=== PATIENT | male | born 1955 | race Hispanic/Latino ===

== ENCOUNTER 2022-12-24 07:48 | Outpatient (CLI) | payer MEDICARE ==
[2022-12-24] MEDS ORDERED: Iopamidol 370 76% 100 ML VIAL ONE (09:54)
== END 2022-12-24 07:49 | disposition home or self-care (01) ==
LOC: CT 07:48
PROVIDERS: ATTEND Family Medicine
DX: K04.7 Periapical abscess without sinus (principal); R13.19 Other dysphagia; I65.22 Occlusion and stenosis of left carotid artery
CPT/HCPCS: 70492; Q9967

== ENCOUNTER 2023-02-10 08:32 | Inpatient (IN) | payer MEDICARE ==
[2023-02-10] MEDS ORDERED: Ondansetron PF 4 MG/2 ML Vial ONE (08:54)
[2023-02-10 09:15] LABS: #Monocytes 0.3 thou/uL (0.11-0.59); #Neutrophils 2.9 thou/uL (1.40-6.50); %Basophils 0.8 % (0.0-1.0); %Lymphocytes 13.3 % (21.0-51.0); %Neutrophils 77.4 % (42.0-75.0); Hemoglobin 16.3 g/dL (14.0-18.0); Mean Corpuscular HGB CONC 33.7 g/dL (32.0-36.0); Mean Corpuscular Hemoglobin 31.9 pg (27.0-31.0); Mean Corpuscular Volume 94.5 fl (78.0-98.0); Mean Platelet Volume 9.8 fL (7.4-10.4); Platelet Count 194 10x3/uL (130-400); RBC Distribution Width 12.8 % (11.5-14.5); Red Blood Cell (RBC) Count 5.11 mill/uL (4.70-6.10); White Blood Cell (WBC) Count 3.8 10x3/uL (4.8-10.8)
[2023-02-10 09:18] LABS: Bacteria/HPF None Seen HPF (None Seen); Bilirubin Negative (Negative); Blood, Urine Negative (Negative); CAUTI Indications for Culture Pelvic or flank pain; Clarity Clear (Clear); Glucose, Urine (Dipstick) Greater than 1000 mg/dL (Negative); Ketone, Urine 100 mg/dL (Negative); Leukocyte Negative Leu/uL (Negative); Nitrite Negative (Negative); Protein, Urine (Dipstick) 70 mg/dL (Neg-Trace); RBC/HPF 0-3 HPF (0-3); Specific Gravity, Urine 1.035 (1.002-1.036); Squamous Epithelial 0-3 HPF (0-3); Urobilinogen Normal mg/dL (Less than 2); WBC/HPF 0-3 HPF (0-3); pH, Urine 5.5 (5.0-9.0)
[2023-02-10 09:20] LABS: Urine Culture Reflex No No
[2023-02-10 09:40] LABS: ALT (SGPT) 19 U/L (8-55); AST (SGOT) 27 U/L (5-34); Albumin 4.3 g/dL (3.4-4.8); Alkaline Phosphatase 72 U/L (40-110); Anion Gap 23 mmol/L (10-20); BUN (Urea Nitrogen) 29 mg/dL (8.4-25.7); Calc. Creatinine Clearance 0 mL/min (70-130); Carbon Dioxide 17 mmol/L (23-31); Chloride 97 mmol/L (98-107); Estimated GFR 92; Globulin 3.7 g/dL (2.4-3.5); Glucose 240 mg/dL (80-115); Lipase 5 U/L (8-78); Potassium 4.1 mmol/L (3.5-5.1); Sodium 133 mmol/L (136-145)
[2023-02-10 10:22] LABS: Base Excess -9.8 mEq/L (-2.0 to +3.0); Calcium, Ionized (venous) 0.92 mmol/L (1.16-1.32); Chloride (VBG) 105 mmol/L (98-106); Hematocrit-VBG 46 % (42.0-52.0); Hemoglobin (Hb) 15.7 g/dL (12.6-17.4); Potassium (VBG) 3.56 mmol/L (3.70-5.30); Sodium 130.2 mmol/L (133-146); pH (venous) 7.352 (7.32-7.43)
[2023-02-10 10:23] LABS: Actual Bicarbonate (HCO3v) 13.7 mEq/L (22-28)
[2023-02-10 10:27] LABS: Manual Diff?? YES
[2023-02-10 10:46] LABS: Band 46 % (5-11); Lymphocytes 14 % (21-51); Metamyelocyte 4 % (0-0); Monocytes 8 % (0-10); Neutrophil 28 % (42-75)
[2023-02-10 10:50] LABS: Platelet Adequacy Comment Appears Adequate
[2023-02-10] MEDS ORDERED: Piperacillin/Tazobactam 4.5 GM VIAL ONE (11:35)
[2023-02-10] MEDS ORDERED: Sodium Chloride 0.9% 1,000 ML IV PRN ×4 (11:42)
[2023-02-10] MEDS ORDERED: Dextrose 5 %-0.45 % NaCl 1,000 ML IV PRN (11:42)
[2023-02-10] MEDS ORDERED: Dextrose 50% Abboject 50 ML SYRINGE SLOW IVP PRN (11:42)
[2023-02-10] MEDS ORDERED: Electrolyte Replacement Protocol 1 EACH IVPB SCH (11:42)
[2023-02-10] MEDS ORDERED: NS 0.9% w/ 20 MEQ KCL 1,000 ML IV PRN ×2 (11:42)
[2023-02-10] MEDS ORDERED: HUMULIN R 100 UNITS in Sodium Chloride 0.9% 100 ML IVPB SCH (11:45)
[2023-02-10] MEDS ORDERED: Acetaminophen 325 MG TAB PO PRN (11:46)
[2023-02-10] MEDS ORDERED: Ondansetron PF 4 MG/2 ML Vial IVP PRN (11:46)
[2023-02-10] MEDS ORDERED: Morphine 4 MG/ML VIAL SLOW IVP PRN (11:52)
[2023-02-10] MEDS ORDERED: Morphine 4 MG/ML VIAL ONE (12:01)
[2023-02-10] MEDS ORDERED: INSULIN REGULAR IN 0.9 % NACL 100 UNITS/100 ML BAG ONE (12:02)
[2023-02-10] MEDS ORDERED: D5 1/2 NS w/20 mEq KCL 1,000 ML ONE (12:02)
[2023-02-10 13:10] LABS: Anion Gap 16 mmol/L (10-20); BUN (Urea Nitrogen) 23 mg/dL (8.4-25.7); Calc. Creatinine Clearance 0 mL/min (70-130); Calcium 8.9 mg/dL (7.8-10.44); Carbon Dioxide 19 mmol/L (23-31); Chloride 103 mmol/L (98-107); Estimated GFR 102; Glucose 226 mg/dL (80-115); Potassium 3.4 mmol/L (3.5-5.1); Sodium 135 mmol/L (136-145)
[2023-02-10] MEDS ORDERED: Iopamidol-370 76% 500 ML MDV (1 ML CHARGE) ONE (14:19)
[2023-02-10] MEDS: Pantoprazole 40 MG VIAL IVP SCH (16:01)
[2023-02-10] MEDS: D5 1/2 NS w/20 mEq KCL 1,000 ML IV PRN ×3 (16:02→23:30)
[2023-02-10 16:40] LABS: Anion Gap 14 mmol/L (10-20); BUN (Urea Nitrogen) 20 mg/dL (8.4-25.7); Calc. Creatinine Clearance 0 mL/min (70-130); Carbon Dioxide 17 mmol/L (23-31); Chloride 104 mmol/L (98-107); Estimated GFR 99; Glucose 183 mg/dL (80-115); Potassium 3.2 mmol/L (3.5-5.1); Sodium 132 mmol/L (136-145)
[2023-02-10] MEDS: Piperacillin/Tazobactam 3.375 GM in Sodium Chloride 0.9% 100 ML IVPB SCH ×2 (18:36→23:17)
[2023-02-10] MEDS: Potassium Chloride 20 MEQ in Premix Bag 1 BAG IVPB SCH ×2 (18:36→21:10)
[2023-02-10] MEDS ORDERED: Sodium Chloride 0.9% 1,000 ML IV SCH (18:45)
[2023-02-10 20:48] LABS: Anion Gap 13 mmol/L (10-20); BUN (Urea Nitrogen) 16 mg/dL (8.4-25.7); Calc. Creatinine Clearance 79 mL/min (70-130); Calcium 8.7 mg/dL (7.8-10.44); Carbon Dioxide 18 mmol/L (23-31); Chloride 104 mmol/L (98-107); Estimated GFR 101; Glucose 168 mg/dL (80-115); Potassium 3.8 mmol/L (3.5-5.1); Sodium 131 mmol/L (136-145)
[2023-02-11] MEDS: D5 1/2 NS w/20 mEq KCL 1,000 ML IV PRN (03:54)
[2023-02-11 04:51] LABS: Anion Gap 11 mmol/L (10-20); BUN (Urea Nitrogen) 7 mg/dL (8.4-25.7); Calc. Creatinine Clearance 85 mL/min (70-130); Calcium 8.4 mg/dL (7.8-10.44); Carbon Dioxide 19 mmol/L (23-31); Chloride 105 mmol/L (98-107); Estimated GFR 103; Glucose 135 mg/dL (80-115); Magnesium 1.5 mg/dL (1.6-2.6); Potassium 3.6 mmol/L (3.5-5.1); Sodium 131 mmol/L (136-145)
[2023-02-11] MEDS ORDERED: Magnesium 2 GM/50 ML(in water) 2 GM in Premix Bag 1 BAG IVPB SCH (09:00)
[2023-02-11] MEDS ORDERED: Electrolyte Replacement Protocol 1 EACH FS SCH (09:00)
[2023-02-11 09:28] LABS: Phosphorus Less than 1.0 mg/dL (2.3-4.7)
[2023-02-11] MEDS: Piperacillin/Tazobactam 3.375 GM in Sodium Chloride 0.9% 100 ML IVPB SCH ×2 (09:38→16:16)
[2023-02-11] MEDS: Ezetimibe 10 MG TAB PO SCH (09:39)
[2023-02-11] MEDS: Pantoprazole 40 MG VIAL IVP SCH (09:39)
[2023-02-11] MEDS: Clopidogrel Bisulfate 75 MG TAB PO SCH (09:39)
[2023-02-11] MEDS: Aspirin Chewable 81 MG TAB PO SCH (09:39)
[2023-02-11] MEDS: Atorvastatin Calcium 10 MG TAB PO SCH (09:39)
[2023-02-11] MEDS: Ascorbic Acid 500 mg Chewable Tablet PO SCH (09:39)
[2023-02-11] MEDS: Insulin Glargine 30 UNITS/0.3 ML VIAL SC SCH (09:39)
[2023-02-11 11:33] VITALS: BMI 21.5
[2023-02-11 14:57] LABS: Anion Gap 12 mmol/L (10-20); BUN (Urea Nitrogen) 4 mg/dL (8.4-25.7); Calc. Creatinine Clearance 80 mL/min (70-130); Calcium 8.9 mg/dL (7.8-10.44); Carbon Dioxide 17 mmol/L (23-31); Chloride 102 mmol/L (98-107); Estimated GFR 102; Glucose 201 mg/dL (80-115); Magnesium 1.5 mg/dL (1.6-2.6); Potassium 3.3 mmol/L (3.5-5.1); Sodium 128 mmol/L (136-145)
[2023-02-11 15:43] LABS: Phosphorus 1.3 mg/dL (2.3-4.7)
[2023-02-11] MEDS ORDERED: Dextrose 50% Abboject 50 ML SYRINGE SLOW IVP PRN (16:26)
[2023-02-11] MEDS ORDERED: HumaLOG 300 UNITS/3 ML VIAL SC PRN (16:26)
[2023-02-11] MEDS ORDERED: Glucagon 1 MG/ML KIT IM PRN (16:26)
[2023-02-11] MEDS ORDERED: Dextrose 5% in Water 1,000 ML IV PRN (16:26)
[2023-02-11] MEDS ORDERED: Potassium Phosphate 30 MMOL in Sodium Chloride 0.9% 500 ML IVPB SCH (16:30)
[2023-02-11] MEDS ORDERED: Sodium Bicarbonate Tab 325 MG TAB PO SCH (16:30)
[2023-02-11] MEDS ORDERED: Magnesium Sulfate In Water 4 GM in Premix Bag 1 BAG IVPB SCH (16:30)
[2023-02-11] MEDS: Sodium Chloride 0.9% 1,000 ML IV SCH (16:48)
[2023-02-11] MEDS: HumaLOG 300 UNITS/3 ML VIAL SC PRN (18:11)
[2023-02-11 20:05] LABS: Anion Gap 10 mmol/L (10-20); BUN (Urea Nitrogen) 6 mg/dL (8.4-25.7); Calc. Creatinine Clearance 81 mL/min (70-130); Calcium 8.8 mg/dL (7.8-10.44); Carbon Dioxide 22 mmol/L (23-31); Chloride 105 mmol/L (98-107); Estimated GFR 102; Glucose 157 mg/dL (80-115); Potassium 3.2 mmol/L (3.5-5.1); Sodium 134 mmol/L (136-145)
[2023-02-12] MEDS: Piperacillin/Tazobactam 3.375 GM in Sodium Chloride 0.9% 100 ML IVPB SCH ×3 (01:07→15:23)
[2023-02-12 04:44] LABS: Hemoglobin 13.6 g/dL (14.0-18.0); Mean Corpuscular HGB CONC 36.1 g/dL (32.0-36.0); Mean Corpuscular Hemoglobin 32.8 pg (27.0-31.0); Mean Corpuscular Volume 90.8 fl (78.0-98.0); Mean Platelet Volume 9.5 fL (7.4-10.4); Platelet Count 159 10x3/uL (130-400); RBC Distribution Width 12.8 % (11.5-14.5); Red Blood Cell (RBC) Count 4.15 mill/uL (4.70-6.10); White Blood Cell (WBC) Count 3.4 10x3/uL (4.8-10.8)
[2023-02-12 04:48] LABS: Delete Auto Diff?? YES; Manual Diff?? YES
[2023-02-12] MEDS: Sodium Chloride 0.9% 1,000 ML IV SCH ×2 (04:56→13:24)
[2023-02-12 05:09] LABS: ALT (SGPT) 18 U/L (8-55); AST (SGOT) 30 U/L (5-34); Albumin 3.2 g/dL (3.4-4.8); Alkaline Phosphatase 76 U/L (40-110); Anion Gap 9 mmol/L (10-20); BUN (Urea Nitrogen) 6 mg/dL (8.4-25.7); Bilirubin, Total 0.6 mg/dL (0.2-1.2); Calc. Creatinine Clearance 94 mL/min (70-130); Calcium 8.4 mg/dL (7.8-10.44); Carbon Dioxide 23 mmol/L (23-31); Chloride 108 mmol/L (98-107); Estimated GFR 107; Globulin 2.6 g/dL (2.4-3.5); Glucose 170 mg/dL (80-115); Magnesium 1.7 mg/dL (1.6-2.6); Potassium 3.2 mmol/L (3.5-5.1); Protein, Total 5.8 g/dL (5.8-8.1); Sodium 137 mmol/L (136-145)
[2023-02-12 05:14] LABS: Band 50 % (5-11); CellaVision Operator ID LAB.CLH1; Lymphocytes 8 % (21-51); Monocytes 10 % (0-10); Neutrophil 24 % (42-75); Platelet Adequacy Comment Platelets Normal; Polychromasia SLIGHT = 2-3 cells HPF (0-2); Reactive Lymphocytes 7 % (0-10); Total Cell Count 99
[2023-02-12 05:17] LABS: Phosphorus 2.2 mg/dL (2.3-4.7)
[2023-02-12] MEDS: HumaLOG 300 UNITS/3 ML VIAL SC PRN ×2 (05:51→17:49)
[2023-02-12] MEDS ORDERED: Potassium Chloride 20 MEQ TAB PO SCH (08:30)
[2023-02-12] MEDS: Aspirin Chewable 81 MG TAB PO SCH (08:44)
[2023-02-12] MEDS: Ascorbic Acid 500 mg Chewable Tablet PO SCH (08:44)
[2023-02-12] MEDS: Ezetimibe 10 MG TAB PO SCH (08:44)
[2023-02-12] MEDS: Sodium Bicarbonate Tab 325 MG TAB PO SCH ×3 (08:44→20:25)
[2023-02-12] MEDS: Atorvastatin Calcium 10 MG TAB PO SCH (08:45)
[2023-02-12] MEDS: Clopidogrel Bisulfate 75 MG TAB PO SCH (08:45)
[2023-02-12] MEDS: Insulin Glargine 30 UNITS/0.3 ML VIAL SC SCH (08:46)
[2023-02-12] MEDS: Pantoprazole 40 MG VIAL IVP SCH (08:47)
[2023-02-12] MEDS ORDERED: Potassium Phosphate 30 MMOL in Sodium Chloride 0.9% 500 ML IVPB SCH (09:00)
[2023-02-13] MEDS: Piperacillin/Tazobactam 3.375 GM in Sodium Chloride 0.9% 100 ML IVPB SCH ×2 (00:36→10:21)
[2023-02-13 09:08] LABS: Hemoglobin 12.8 g/dL (14.0-18.0); Mean Corpuscular HGB CONC 34.8 g/dL (32.0-36.0); Mean Corpuscular Hemoglobin 32.1 pg (27.0-31.0); Mean Corpuscular Volume 92.2 fl (78.0-98.0); Mean Platelet Volume 9.4 fL (7.4-10.4); Platelet Count 182 10x3/uL (130-400); RBC Distribution Width 12.8 % (11.5-14.5); Red Blood Cell (RBC) Count 3.99 mill/uL (4.70-6.10); White Blood Cell (WBC) Count 2.9 10x3/uL (4.8-10.8)
[2023-02-13 09:31] LABS: ALT (SGPT) 19 U/L (8-55); AST (SGOT) 29 U/L (5-34); Albumin 3.3 g/dL (3.4-4.8); Alkaline Phosphatase 62 U/L (40-110); Anion Gap 10 mmol/L (10-20); BUN (Urea Nitrogen) 4 mg/dL (8.4-25.7); Bilirubin, Total 0.5 mg/dL (0.2-1.2); Calc. Creatinine Clearance 84 mL/min (70-130); Calcium 9.2 mg/dL (7.8-10.44); Carbon Dioxide 26 mmol/L (23-31); Chloride 107 mmol/L (98-107); Estimated GFR 103; Globulin 2.7 g/dL (2.4-3.5); Glucose 187 mg/dL (80-115); Potassium 2.9 mmol/L (3.5-5.1); Sodium 140 mmol/L (136-145)
[2023-02-13] MEDS: Ezetimibe 10 MG TAB PO SCH (10:21)
[2023-02-13] MEDS: Atorvastatin Calcium 10 MG TAB PO SCH (10:22)
[2023-02-13] MEDS: Ascorbic Acid 500 mg Chewable Tablet PO SCH (10:22)
[2023-02-13] MEDS: Aspirin Chewable 81 MG TAB PO SCH (10:22)
[2023-02-13] MEDS: Sodium Bicarbonate Tab 325 MG TAB PO SCH (10:22)
[2023-02-13] MEDS: Clopidogrel Bisulfate 75 MG TAB PO SCH (10:22)
[2023-02-13] MEDS: Insulin Glargine 30 UNITS/0.3 ML VIAL SC SCH (10:23)
[2023-02-13] MEDS: Pantoprazole 40 MG VIAL IVP SCH (10:23)
[2023-02-13] MEDS ORDERED: Potassium Chloride 20 MEQ TAB PO SCH (10:30)
[2023-02-13] MEDS: HumaLOG 300 UNITS/3 ML VIAL SC PRN (12:22)
[2023-02-13] MEDS: metroNIDAZOLE 500 MG TAB PO SCH ×2 (14:51→20:27)
[2023-02-13 18:13] LABS: Adenovirus F 40-41 Not Detected (Not Detected); Astrovirus Not Detected (Not Detected); Campylobacter by PCR Not Detected (Not Detected); Cryptosporidium Not Detected (Not Detected); Cyclospora cayetanensis Not Detected (Not Detected); Entamoeba histolytica Not Detected (Not Detected); Enteroaggregative E. coli Not Detected (Not Detected); Enteropathogenic E. coli Not Detected (Not Detected); Enterotoxigenic E. coli Not Detected (Not Detected); Giardia lamblia Not Detected (Not Detected); Norovirus GI-GII Not Detected (Not Detected); Plesiomonas shigelloides Not Detected (Not Detected); Rotavirus A Not Detected (Not Detected); Salmonella DETECTED (Not Detected); Sapovirus Not Detected (Not Detected); Shiga-toxin-producing E coli Not Detected (Not Detected); Shigella/Enteroinvasive E coli Not Detected (Not Detected); Vibrio Not Detected (Not Detected); Vibrio cholerae Not Detected (Not Detected); Yersinia enterocolitica Not Detected (Not Detected)
[2023-02-13] MEDS: Ciprofloxacin 500 MG TAB PO SCH (20:27)
[2023-02-14] MEDS: Ciprofloxacin 500 MG TAB PO SCH ×2 (06:01→20:56)
[2023-02-14 07:07] LABS: Hemoglobin 12.9 g/dL (14.0-18.0); Mean Corpuscular HGB CONC 35.7 g/dL (32.0-36.0); Mean Corpuscular Hemoglobin 32.6 pg (27.0-31.0); Mean Corpuscular Volume 91.2 fl (78.0-98.0); Mean Platelet Volume 10.1 fL (7.4-10.4); Platelet Count 196 10x3/uL (130-400); RBC Distribution Width 12.7 % (11.5-14.5); Red Blood Cell (RBC) Count 3.96 mill/uL (4.70-6.10)
[2023-02-14 07:43] LABS: ALT (SGPT) 21 U/L (8-55); AST (SGOT) 33 U/L (5-34); Albumin 3.3 g/dL (3.4-4.8); Alkaline Phosphatase 64 U/L (40-110); Anion Gap 10 mmol/L (10-20); BUN (Urea Nitrogen) 6 mg/dL (8.4-25.7); Bilirubin, Total 0.5 mg/dL (0.2-1.2); Calc. Creatinine Clearance 93 mL/min (70-130); Calcium 8.7 mg/dL (7.8-10.44); Carbon Dioxide 25 mmol/L (23-31); Chloride 109 mmol/L (98-107); Estimated GFR 108; Globulin 2.2 g/dL (2.4-3.5); Glucose 83 mg/dL (80-115); Magnesium 1.6 mg/dL (1.6-2.6); Potassium 3.3 mmol/L (3.5-5.1); Protein, Total 5.5 g/dL (5.8-8.1); Sodium 141 mmol/L (136-145)
[2023-02-14 08:31] LABS: Phosphorus 3.2 mg/dL (2.3-4.7)
[2023-02-14] MEDS: Aspirin Chewable 81 MG TAB PO SCH (09:19)
[2023-02-14] MEDS: Ascorbic Acid 500 mg Chewable Tablet PO SCH (09:19)
[2023-02-14] MEDS: Atorvastatin Calcium 10 MG TAB PO SCH (09:19)
[2023-02-14] MEDS: Ezetimibe 10 MG TAB PO SCH (09:20)
[2023-02-14] MEDS: Insulin Glargine 30 UNITS/0.3 ML VIAL SC SCH (09:20)
[2023-02-14] MEDS: Pantoprazole 40 MG VIAL IVP SCH (09:20)
[2023-02-14] MEDS: metroNIDAZOLE 500 MG TAB PO SCH ×3 (09:20→20:56)
[2023-02-14] MEDS: Clopidogrel Bisulfate 75 MG TAB PO SCH (09:20)
[2023-02-14] MEDS: HumaLOG 300 UNITS/3 ML VIAL SC PRN ×2 (14:26→17:44)
[2023-02-14] MEDS ORDERED: Potassium Chloride 20 MEQ TAB PO SCH (18:00)
[2023-02-15] MEDS: Ciprofloxacin 500 MG TAB PO SCH (05:27)
[2023-02-15] MEDS: Aspirin Chewable 81 MG TAB PO SCH (09:23)
[2023-02-15] MEDS: Ascorbic Acid 500 mg Chewable Tablet PO SCH (09:23)
[2023-02-15] MEDS: metroNIDAZOLE 500 MG TAB PO SCH (09:24)
[2023-02-15] MEDS: Ezetimibe 10 MG TAB PO SCH (09:24)
[2023-02-15] MEDS: Clopidogrel Bisulfate 75 MG TAB PO SCH (09:24)
[2023-02-15] MEDS: Insulin Glargine 30 UNITS/0.3 ML VIAL SC SCH (09:24)
[2023-02-15] MEDS: Atorvastatin Calcium 10 MG TAB PO SCH (09:24)
[2023-02-15] MEDS: Pantoprazole 40 MG VIAL IVP SCH (09:26)
[2023-02-15] MEDS: HumaLOG 300 UNITS/3 ML VIAL SC PRN (12:51)
[2023-02-15 14:32] VITALS: BP 146/65; TEMP 97.9
== END 2023-02-15 14:52 | disposition home or self-care (01) | DRG 871 ==
LOC: SUATTDRO 08:32 → ERS 08:32 → ERHOLD 11:34 → IMCU/EMU 15:46 → 2NO 02-11 16:23 → T4-B 02-13 14:48
PROVIDERS: ADMIT Family Medicine; ATTEND Family Medicine
DX: A02.1 Salmonella sepsis (principal); E11.10 Type 2 diabetes mellitus with ketoacidosis without coma; A02.0 Salmonella enteritis; R65.20 Severe sepsis without septic shock; I25.10 Atherosclerotic heart disease of native coronary artery without angina pectoris; I10 Essential (primary) hypertension; K21.9 Gastro-esophageal reflux disease without esophagitis; E78.5 Hyperlipidemia, unspecified; N28.89 Other specified disorders of kidney and ureter; E83.42 Hypomagnesemia; Z95.1 Presence of aortocoronary bypass graft; Z95.5 Presence of coronary angioplasty implant and graft; Z79.82 Long term (current) use of aspirin; Z79.899 Other long term (current) drug therapy; Z79.02 Long term (current) use of antithrombotics/antiplatelets; Z79.84 Long term (current) use of oral hypoglycemic drugs
CPT/HCPCS: 36415; 36416; 71045; 74177; 80048; 80053; 81001; 82010; 82805; 83036; 83605; 83690; 83735; 84100; 84484; 85025; 85027; 85060; 87040; 87324; 87449; 87507; 93005; 96361; 96365; 96366; 96367; 96375; C9113; J1815; J2270; J2405; J2543; J3475; J3480; J3490; J7030; J7050; Q9967